=== PATIENT | female | born 1990 | race Caucasian/White ===

== ENCOUNTER 2019-11-26 08:27 | Emergency (ER) | payer OTHER ==
[~2019-11-26] VITALS: Ht 157.5 cm; Wt 49.0 kg
[2019-11-26 08:33] VITALS: Ht 157.5 cm; Wt 49.0 kg
[2019-11-26 11:57] VITALS: BP 104/73
== END 2019-11-26 11:57 | disposition home or self-care (01) ==
LOC: ED 08:27
DX: F41.0 Panic disorder [episodic paroxysmal anxiety] (principal)